=== PATIENT | female | born 1965 | race African-American/Black ===

== ENCOUNTER 2018-04-01 09:29 | Day surgery (SDC) | payer OTHER ==
[~2018-04-01] VITALS: Ht 170.2 cm; Wt 79.1 kg
[~2018-04-01 09:29] MED LIST: HEPARIN 1,000 UNITS/ML, 10ML ONE; PROTAMINE SULFATE 10 MG/ML, 5ML ONE
[2018-04-01 10:35] VITALS: BP 136/84
[2018-04-01] MEDS ORDERED: LEVO137T3 PO (10:35)
[2018-04-01] MEDS ORDERED: FURO-93 PO (10:35)
[2018-04-01] MEDS ORDERED: AMLO5TAB2 PO (10:35)
[2018-04-01] MEDS ORDERED: SODIUM CHLORIDE 0.9% 1,000 ML IV SCH (11:02)
[2018-04-01] MEDS ORDERED: FENTANYL PF 100 MCG/2ML ONE ×2 (13:38→15:04)
[2018-04-01] MEDS ORDERED: MIDAZOLAM 1 MG/ML, 2ML ONE (13:39)
[2018-04-01] MEDS ORDERED: DEXAMETHASONE 4 MG/ML, 1ML ONE (14:09)
[2018-04-01] MEDS ORDERED: PROPOFOL 10 MG/ML, 20ML ONE (14:09)
[2018-04-01] MEDS ORDERED: ONDANSETRON 2MG/ML, 2ML ONE (14:09)
[2018-04-01] MEDS ORDERED: EPHEDRINE 50 MG/ML, 1ML IM PRN (14:30)
[2018-04-01] MEDS ORDERED: PROMETHAZINE 25 MG/ML, 1ML IV PRN (14:30)
[2018-04-01] MEDS ORDERED: ACETAMINOPHEN 325 MG TABLET PO PRN (14:30)
[2018-04-01] MEDS ORDERED: DIPHENHYDRAMINE 50 MG/ML, 1ML IVPush PRN (14:30)
[2018-04-01] MEDS ORDERED: SCOPOLAMINE PATCH, 1.5MG PATCH.TD72 TD PRN (14:30)
[2018-04-01] MEDS ORDERED: PROMETHAZINE 12.5 MG SUPP PR PRN (14:30)
[2018-04-01] MEDS ORDERED: ONDANSETRON ODT 8 MG PO PRN (14:30)
[2018-04-01] MEDS ORDERED: LABETALOL 5MG/ML, 20ML IV PRN (14:30)
[2018-04-01] MEDS ORDERED: FENTANYL PF 100 MCG/2ML IV PRN (14:30)
[2018-04-01] MEDS ORDERED: ACETAMINOPHEN 650 MG/20.3 ML UDC ONE (15:03)
[2018-04-01] MEDS ORDERED: CEFAZOLIN 1,000 MG ONE (15:54)
== END 2018-04-01 17:30 | disposition home or self-care (01) ==
LOC: OUT 09:29
PROVIDERS: ATTEND Surgery Vascular Surgery
DX: N18.6 End stage renal disease (principal)
CPT/HCPCS: 36415; 36821; 80047; 84703; J0690; J1100; J1644; J2250; J2405; J2704; J3010; J7030; J2720